=== PATIENT | male | born 1985 | race American Indian/Alaskan Native ===

== ENCOUNTER 2018-12-29 20:53 | Emergency (ER) | payer OTHER ==
[2018-12-29 21:02] VITALS: BP 131/78
--- NOTE | 2018-12-29 21:05 | Emergency Department Report ---
Blank Doc - Documentation Documentation: This is a 33-year-old male that presents with right knee pain s/p playing bask etball. This initial assessment/diagnostic orders/clinical plan/treatment(s) is/are subject to change based on patient's health status, clinical progression and re- assessment by fellow clinical providers in the ED. Further treatment and workup at subsequent clinical providers discretion. Patient/guardians urged not to elope from the ED as their condition may be serious if not clinically assessed and managed. Initial orders include: 1- Patient sent to [facility] for further evaluation and treatment 2- xray
--- NOTE | 2018-12-29 22:10 | XRay Report ---
PROCEDURE: XR KNEE 3V RT HISTORY: knee pain FINDINGS: AP, lateral and oblique views of the right knee were acquired and demonstrate no fracture o r malalignment of the right knee. There is mild patellofemoral compartment osteoarthritis. IMPRESSION: No fracture is seen in the right knee This document is electronically signed by Chapo Briscoe MD., Dec 29 2018 10:07:59 PM ET
--- NOTE | 2018-12-29 23:34 | Emergency Department Report ---
ED Extremity Problem HPI - General Chief complaint: Extremity Injury, Lower Stated complaint: KNEE INJURY Time Seen by Provider: 12/29/18 21:04 Source: patient, family Mode of arrival: Ambulatory Limitations: No Limitations - History of Present Illness Initial comments: pt is a 33 yo male who presents to the ED with c/o right knee pain that began two days ago. The patient states he jumped up to get a rebound and when he came back down he felt a popping sensation. The patient denies any numbness or weakness. He states he has been ambulatory with a limp. He states he has sprained this knee previously. The patient denies any PMHx or allergies to medications. - Related Data Previous Rx's Medication Instructions Recorded Last Taken Type Ibuprofen 800 mg PO Q6HR PRN #20 tablet 12/29/18 Unknown Rx Allergies Allergy/AdvReac Type Severity Reaction Status Date / Time No Known Allergies Allergy Verified 12/30/18 00:02 ED Review of Systems ROS: Stated complaint: KNEE INJURY Other details as noted in HPI Comment: All other systems reviewed and negative ED Past Medical Hx - Past Medical History Previous Medical History?: No - Surgical History Past Surgical History?: No - Social History Smoking Status: Current Every Day Smoker Substance Use Type: None - Medications Home Medications: Home Medications Medication Instructions Recorded Confirmed Last Taken Type Ibuprofen 800 mg PO Q6HR PRN #20 tablet 12/29/18 Unknown Rx ED Physical Exam - General Limitations: No Limitations General appearance: alert, in no apparent distress - Head Head exam: Present: atraumatic, normocephalic - Eye Eye exam: Present: normal appearance - ENT ENT exam: Present: mucous membranes moist - Extremities Exam Extremities exam: Present: other (mild TTP over the patella ligament, mild TTP of the right medial knee, no obvious joint effusion, no obvious joint laxity, pt has pain with ROM of the right knee, neurovascularly intact) - Neurological Exam Neurological exam: Present: alert, oriented X3 - Psychiatric Psychiatric exam: Present: normal affect, normal mood - Skin Skin exam: Present: warm, dry, intact ED Course Vital Signs 12/29/18 21:00 Temperature 98.3 F Pulse Rate 90 Respiratory 18 Rate Blood Pressure 131/78 O2 Sat by Pulse 98 Oximetry ED Medical Decision Making - Radiology Data Radiology results: report reviewed PROCEDURE: XR KNEE 3V RT HISTORY: knee pain FINDINGS: AP, lateral and oblique views of the right knee were acquired and demonstrate no fracture or malalignment of the right knee. There is mild patellofemoral compartment osteoarthritis. IMPRESSION: No fracture is seen in the right knee This document is electronically signed by Chapo Briscoe MD., Dec 29 2018 10:07:59 PM ET - Medical Decision Making pt is a 33 yo male who presents to the ED with c/o right knee pain that began two days ago. The patient states he jumped up to get a rebound and when he came back down he felt a popping sensation. The patient denies any numbness or weakness. He states he has been ambulatory with a limp. He states he has sprained this knee previously. The patient denies any PMHx or allergies to medications. XR of the right knee is normal. Pt given anti-inflammatory, knee immobilizer, and crutches. Advised to use elevation, ice, and rest. Discussed with pt to follow up with Dr. Nunn orthopedic. Return to the ED for any new or worsening symptoms. - Differential Diagnosis strain, sprain, fx, dislocation Critical care attestation.: If time is entered above; I have spent that time in minutes in the direct care of this critically ill patient, excluding procedure time. ED Disposition Clinical Impression: Right knee sprain Qualifiers: Encounter type: initial encounter Involved ligament of knee: unspecified ligament Qualified Code(s): S83.91XA - Sprain of unspecified site of right knee, initial encounter Disposition: TO HOME OR SELFCARE Is pt being admited?: No Does the pt Need Aspirin: No Condition: Stable Instructions: Knee Sprain (ED), Crutch Instructions (ED), Knee Immobilizer (ED) Additional Instructions: please follow up with Dr. Nunn, orthopedic in the next 2-3 days. Please follow up with a primary care doctor in the next 2-3 days. Take medication as prescribed. Use ice, elevation, and rest. Return to the emergency room for any new or worsening symptoms. Prescriptions: Ibuprofen 800 mg PO Q6HR PRN #20 tablet PRN Reason: Pain, Moderate (4-6) Referrals: JIAN HO MD [Primary Care Provider] - 2-3 Days OTIS NUNN MD [Staff Physician] - 2-3 Days Forms: Work/School Release Form Time of Disposition: 23:33 Print Language: AMHARIC
[2018-12-29] MEDS ORDERED: IBUPROFEN PO ONE (23:51)
[2018-12-29] MEDS ORDERED: IBUPROFEN ONE (23:53)
== END 2018-12-29 23:55 | disposition home or self-care (01) ==
LOC: ED 20:53
DX: S83.91XA Sprain of unspecified site of right knee, initial encounter (principal); F17.200 Nicotine dependence, unspecified, uncomplicated; X58.XXXA Exposure to other specified factors, initial encounter; Y93.89 Activity, other specified; Y92.89 Other specified places as the place of occurrence of the external cause; Y99.8 Other external cause status